=== PATIENT | male | born 1940 | race Caucasian/White ===

== ENCOUNTER 2020-09-30 10:30 | Emergency (ER) | payer MEDICARE, OTHER, SELFPAY ==
[2020-09-30] VITALS (13 sets, daily range): BP systolic 124–183; BP diastolic 68–96; PULSE 74–92; RESP 12–22; TEMP 36.6; O2SAT 96–99; BMI 26.5
--- NOTE | 2020-09-30 10:39 | DI.RAD.S_ITS ---
PROCEDURE: XR CHEST 1V INDICATIONS: chest pain TECHNIQUE: One view of the chest was acquired. COMPARISON: None. FINDINGS: Surgical changes and devices: None. Lungs and pleura: There is mild interstitial prominence. Prominence of the pulmonary vasculature. Linear densities at the right greater than left lung bases likely representing atelectasis. Mediastinum: Mediastinal contours appear normal. Heart size is enlarged. Vascular calcifications within the aortic arch. Bones and chest wall: Degenerative changes of the shoulders and spine without acute osseous abnormality or aggressive appearing osseous lesion. Multiple calcifications overlying the right humeral head and within the subcoracoid recess likely representing intra-articular loose bodies. Overlying soft tissues appear unremarkable. IMPRESSION: Findings suggestive of CHF with cardiomegaly, pulmonary vascular congestion and findings favoring interstitial edema. Atypical infectious process is not completely excluded. No focal consolidation. Dictated by: on 09/30/2020 at 9:53 Approved by: on 09/30/2020 at 9:55
--- NOTE | 2020-09-30 11:39 | ED_ITS ---
HPI - Chest Pain General Chief Complaint: Chest Pain Stated Complaint: chest pain Time Seen by Provider: 09/30/20 11:38 Source: patient and family Mode of arrival: Ambulatory Limitations: no limitations History of Present Illness HPI narrative: This is an 80-year-old male comes emergency department complaint of chest pain that developed about 730 this morning upon awakening. Patient states it was present and then resolved while he was taking the [place] from [facility] [place], [place] to the hospital. Patient states it feels dull. It was on the left side and below the areola. Patient states it did not radiate anywhere else. Is not currently present. He denies any exacerbating or alleviating factors. He has not had similar symptoms in the past. Denies any fevers, no chills. He has had a cough with productive sort of greenish tenacious sputum. Patient denies any chest congestion. He has noted his legs chronic swelling in her maybe a little bit worse. He denies any nausea, no vomiting. No diaphoresis. He has chronic urinary incontinence. He denies any new changes with bowel movements, no black or bloody stools. He is on anticoagulant they believe it is Xarelto for his atrial fibrillation. He states he had a cardiac arrest 27 years ago that was witnessed by his secondary to a medication reaction or she performed CPR at home. He denies any cardiac stents. He has a history of hypertension, dyslipid emia, Parkinson's and gout. He currently lives at [facility] but is visiting his daughter this weekend. She does not have his most recent updated medication list but does have a prior list which shows that he has been on Lasix. Related Data Previous Rx's Medication Instructions Recorded furosemide [Lasix] 40 mg PO DAILY #5 tab 09/30/20 Allergies Allergy/AdvReac Type Severity Reaction Status Date / Time flecainide Allergy Severe Unresponsiv Verified 09/30/20 11:01 e Review of Systems Review of Systems ROS Unobtainable: All systems reviewed & are unremarkable except as noted in HPI and below Patient History Social History Smoking Status: Never smoker Smoking Status: Never smoker alcohol intake frequency: other Substance Use Type: does not use Exam Narrative Exam Narrative: GENERAL: Alert and oriented x three, elderly male in mild distress HEENT: Head normocephalic, atraumatic, EOMI, pupils reactive, face symmetric, moist mucous membranes NECK: Supple, full range of motion CARDIOVASCULAR: Regular rate and rhythm without murmurs, rubs or gallops. No JVD. RESPIRATORY: Breath sounds equal bilaterally, no wheezes rales or rhonchi. No tachypnea accessory muscle use. ABDOMEN: Soft, nontender. Normoactive bowel sounds all 4 quadrants. No guarding or rebound, rigidity, no mass : No CVA tenderness EXTREMITIES: Normal range of motion, no clubbing. Bilateral lower extremity edema. Neurovascularly intact NEUROLOGICAL: Cranial nerves II through XII grossly intact. Moving all extremities SKIN: Warm, dry, no petechiae, no rashes. Patient has hyperpigmentation bilateral lower extremities consistent with venous stasis changes. Initial Vital Signs Initial Vital Signs: Vital Signs Pulse Rate 75 09/30/20 10:50 Respiratory Rate 18 09/30/20 10:50 Blood Pressure 133/77 09/30/20 10:50 Pulse Oximetry 98 09/30/20 10:50 Course Orders Ordered: ED Orders 09/30/20 10:39 XR chest 1V Stat EKG-12 Lead Stat 09/30/20 10:55 COVID19 - ADMIT ([employer] swab/PCR) Stat 09/30/20 10:56 Sputum Culture Stat 09/30/20 12:05 Complete Blood Count AUTO DIFF Stat Comprehensive Metabolic Panel Stat Lipase Stat NT-proBNP (BNP-Adult 18+) Stat Partial Thromboplastin Time Stat Prothrombin Time INR Stat Troponin & CK Cardiac Panel Stat 09/30/20 14:15 Troponin I Stat Discontinued Medications Furosemide (Furosemide 40 Mg/4 Ml Vial) 40 mg IV NOW ONE Stop: 09/30/20 13:25 Last Admin: 09/30/20 13:32 Dose: 40 mg Documented by: JEN Vital Signs Vital signs: Vital Signs - 8 hr 09/30/20 10:50 09/30/20 11:00 09/30/20 11:01 Temperature 97.8 F Pulse Rate 75 83 74 Respiratory Rate 18 13 22 Blood Pressure 133/77 125/68 125/68 Pulse Oximetry 98 98 97 09/30/20 11:30 09/30/20 12:00 09/30/20 12:30 Temperature Pulse Rate 80 83 87 Respiratory Rate 12 17 Blood Pressure 124/68 158/91 H Pulse Oximetry 96 99 09/30/20 12:31 09/30/20 13:00 09/30/20 13:06 Temperature Pulse Rate 82 80 82 Respiratory Rate 17 15 Blood Pressure 183/84 H 158/96 H Pulse Oximetry 98 09/30/20 13:30 09/30/20 14:00 09/30/20 14:30 Temperature Pulse Rate 92 H 84 79 Respiratory Rate 21 16 17 Blood Pressure 157/91 H 139/82 153/73 H Pulse Oximetry 09/30/20 15:00 Temperature Pulse Rate 82 Respiratory Rate 15 Blood Pressure 131/81 Pulse Oximetry MDM - Chest Pain Lab Data Attestation: I reviewed the patient's lab results. Result diagrams: 09/30/20 12:05 09/30/20 12:05 Labs: Lab Results 09/30/20 09/30/20 09/30/20 Range/Units 10:55 12:05 12:05 WBC 10.9 (4.5-11.0) X10^3/uL RBC 4.36 L (4.5-5.9) X10^6/uL Hgb 13.6 (13.5-17.5) g/dL Hct 41.2 (41-53) % MCV 94.4 (80-100) fL MCH 31.2 (26-34) PG MCHC 33.0 (30-36) % RDW 14.8 (11.6-14.8) % Plt Count 152 (150-400) X10^3/uL Neut % (Auto) 81.0 H (50-75) % Lymph % (Auto) 8.4 L (25-40) % [place] % (Auto) 8.2 (3-14) % Eos % (Auto) 1.7 L (2-4) % Baso % (Auto) 0.7 (0-2) % Neut # (Auto) 8800 H (2897-3901) /uL Lymph # (Auto) 900 L (9975-5572) /uL [place] # (Auto) 900 (0-900) /uL Eos # (Auto) 200 (0-450) /uL Baso # (Auto) 100 (0-100) /uL PT 15.8 H (10.1-12.7) SECONDS INR 1.4 H (0.9-1.3) APTT 43 H (26.4-36.2) SECONDS Sodium (137-145) mmol/L Potassium (3.4-5.1) mmol/L Chloride (98-107) mmol/L Carbon Dioxide (22-32) mmol/L BUN (9-20) mg/dL Creatinine (0.66-1.25) mg/dL Estimated GFR (>60) mL/min BUN/Creatinine Ratio (6-22) Glucose (80-110) mg/dL Calcium (8.4-10.2) mg/dL Total Bilirubin (0.2-1.3) mg/dL AST (17-59) IU/L ALT (<50) IU/L Alkaline Phosphatase (38-126) U/L Total Creatine Kinase (55-170) U/L CK-MB (CK-2) CK-MB (CK-2) Rel Index Troponin I (0.01-0.034) ng/mL NT-Pro-B Natriuret Pep (<450) pg/mL Total Protein (6.3-8.2) g/dL Albumin (3.5-5.0) g/dL Globulin (1.7-4.1) g/dL Albumin/Globulin Ratio (1.0-2.8) Lipase (23-300) U/L SARS-CoV-2 (PCR) Negative (Negative) 09/30/20 09/30/20 Range/Units 12:05 14:15 WBC (4.5-11.0) X10^3/uL RBC (4.5-5.9) X10^6/uL Hgb (13.5-17.5) g/dL Hct (41-53) % MCV (80-100) fL MCH (26-34) PG MCHC (30-36) % RDW (11.6-14.8) % Plt Count (150-400) X10^3/uL Neut % (Auto) (50-75) % Lymph % (Auto) (25-40) % [place] % (Auto) (3-14) % Eos % (Auto) (2-4) % Baso % (Auto) (0-2) % Neut # (Auto) (0814-2854) /uL Lymph # (Auto) (1704-1824) /uL [place] # (Auto) (0-900) /uL Eos # (Auto) (0-450) /uL Baso # (Auto) (0-100) /uL PT (10.1-12.7) SECONDS INR (0.9-1.3) APTT (26.4-36.2) SECONDS Sodium 140 (137-145) mmol/L Potassium 4.4 (3.4-5.1) mmol/L Chloride 106 (98-107) mmol/L Carbon Dioxide 26 (22-32) mmol/L BUN 21 H (9-20) mg/dL Creatinine 0.90 (0.66-1.25) mg/dL Estimated GFR > 60.0 (>60) mL/min BUN/Creatinine Ratio 23.3 H (6-22) Glucose 84 (80-110) mg/dL Calcium 9.4 (8.4-10.2) mg/dL Total Bilirubin 0.8 (0.2-1.3) mg/dL AST 20 (17-59) IU/L ALT 5 (<50) IU/L Alkaline Phosphatase 93 (38-126) U/L Total Creatine Kinase 39 L (55-170) U/L CK-MB (CK-2) TNP CK-MB (CK-2) Rel Index TNP Troponin I < 0.012 < 0.012 (0.01-0.034) ng/mL NT-Pro-B Natriuret Pep 1820 H (<450) pg/mL Total Protein 6.8 (6.3-8.2) g/dL Albumin 4.1 (3.5-5.0) g/dL Globulin 2.7 (1.7-4.1) g/dL Albumin/Globulin Ratio 1.5 (1.0-2.8) Lipase 116 (23-300) U/L SARS-CoV-2 (PCR) (Negative) Imaging Data Chest x-ray: Radiologist's Impression: Robyn Bernard 80 M [address] [id number] ReportSigned Patient: Robyn BernardMR#: [id number]: [id number]:[id number]/Sex: 80 / MDate of Service: 09/30/20Loc: EDAccession Number: [id number] Procedure: XR chest 1V Ordering Provider: Desi Kennedy D.O. PROCEDURE: XR CHEST 1V INDICATIONS: chest pain TECHNIQUE: One view of the chest was acquired. COMPARISON: None. FINDINGS: Surgical changes and devices: None. Lungs and pleura: There is mild interstitial prominence. Prominence of the pulmonary vasculature. Linear densities at the right greater than left lung bases likely representing atelectasis. Mediastinum: Mediastinal contours appear normal. Heart size is enlarged. Vascular calcifications within the aortic arch. Bones and chest wall: Degenerative changes of the shoulders and spine without acute osseous abnormality or aggressive appearing osseous lesion. Multiple calcificat ions overlying the right humeral head and within the subcoracoid recess likely representing intra-articular loose bodies. Overlying soft tissues appear unremarkable. IMPRESSION: Findings suggestive of CHF with cardiomegaly, pulmonary vascular congestion and findings favoring interstitial edema. Atypical infectious process is not completely excluded. No focal consolidation. Dictated by: on 09/30/2020 at 9:53 Approved by: on 09/30/2020 at 9:55 ECG Data Attestation: I personally reviewed and interpreted this ECG as follows: Prior ECG tracings: not available for review Interpretation: AFib, rate of 66, QRS of 116 and QTC of 402. Incomplete right bundle branch. No ischemic changes appreciated. EKG number shows AFib with nonspecific intraventricular conduction. Rate of 78 QRS of 124 and QTC of 453. Patient does not have any acute ST changes appreciated. [facility] Narrative Medical decision making narrative: This is an 80-year-old male who comes to the emergency department with chest pain which has since resolved. Patient's initial troponin is negative with no acute ischemic changes he is in AFib but rate controlled. His BNP is quite elevated he appears fluid overloaded on exam with a changes on chest x-ray consistent with pulmonary edema. Patient continues to be chest pain-free in the department. His repeat troponin is negative with no acute EKG changes. He has cardiac risk factors but I suspect his chest pain is related to CHF exacerbation. Patient feels comfortable returning home. We did discuss that there is still some level of risk. And that if he has any recurrent symptoms he does need to return. Discharge Plan Departure Patient Disposition: Home Clinical Impression: Chest pain, CHF (congestive heart failure) Instructions: DI for Heart Failure Activity Restrictions/Additional Instructions: Follow up with your physician this week. You have been given a prescription to increase your Lasix by 40 mg daily. Please correlate and adjust as needed the amount of Lasix your taking with her regular medications with the prescription given today as we do not have access to your daily medication list. Continue your other home medications as prescribed. Sputum culture was obtained and is pending. Discuss with your facility if they can provide a [place] or condom catheter overnight if you find this helpful. Please return for fevers greater 100.4 F, new or worsening chest pain, increasing shortness of breath, lightheadedness or passing out, increasing sw elling of her extremities, persistent vomiting, black or bloody stools recurrent or new concerning symptoms. Prescriptions: New furosemide [Lasix] 40 mg tablet 40 mg PO DAILY Qty: 5 RF: 0 Referrals: Annie Pendleton MD [Primary Care Provider] -
[2020-09-30 11:52] LABS: COVID19 - ADMIT (NP swab/PCR) Negative (Negative)
[2020-09-30 12:16] LABS: Add Manual Diff / Slide Review NO; Basophils Absolute Auto 100 /uL (0-100); Basophils Percent Auto 0.7 % (0-2); Eosinophils Absolute Auto 200 /uL (0-450); Eosinophils Percent Auto 1.7 % (2-4); Hematocrit 41.2 % (41-53); Hemoglobin 13.6 g/dL (13.5-17.5); Lymphocytes Absolute Auto 900 /uL (1100-4500); Lymphocytes Percent Auto 8.4 % (25-40); Mean Corpuscular Hemoglobin 31.2 PG (26-34); Mean Corpuscular Volume 94.4 fL (80-100); Monocytes Absolute Auto 900 /uL (0-900); Monocytes Percent Auto 8.2 % (3-14); Neutrophils Absolute Auto 8800 /uL (1500-7000); Platelet Count 152 X10^3/uL (150-400); Red Blood Cell Count 4.36 X10^6/uL (4.5-5.9); Red Cell Distribution Width 14.8 % (11.6-14.8); White Blood Cell Count 10.9 X10^3/uL (4.5-11.0)
[2020-09-30 12:21] LABS: INR 1.4 (0.9-1.3); Prothrombin Time 15.8 SECONDS (10.1-12.7)
[2020-09-30 12:24] LABS: PTT Partial Thromboplastin Tim 43 SECONDS (26.4-36.2)
[2020-09-30 12:25] LABS: Alanine Aminotransferase 5 IU/L (<50); Albumin 4.1 g/dL (3.5-5.0); Albumin Globulin Ratio 1.5 (1.0-2.8); Alkaline Phosphatase 93 U/L (38-126); Aspartate Aminotransferase 20 IU/L (17-59); BUN Creatinine Ratio 23.3 (6-22); Bilirubin Total 0.8 mg/dL (0.2-1.3); Blood Urea Nitrogen 21 mg/dL (9-20); Calcium 9.4 mg/dL (8.4-10.2); Carbon Dioxide 26 mmol/L (22-32); Chloride 106 mmol/L (98-107); Creatine Kinase 39 U/L (55-170); Estimated Glomerular Filt Rate > 60.0 mL/min (>60); Globulin 2.7 g/dL (1.7-4.1); Glucose 84 mg/dL (80-110); HEMOLYSIS 42 (0-50); Lipase 116 U/L (23-300); Potassium 4.4 mmol/L (3.4-5.1); Sodium 140 mmol/L (137-145); Total Protein 6.8 g/dL (6.3-8.2)
[2020-09-30 12:37] LABS: NT-proBNP (BNP-Adult 18+) 1820 pg/mL (<450); Troponin I < 0.012 ng/mL (0.01-0.034)
[2020-09-30] MEDS: FUROSEMIDE 40 MG/4 ML VIAL IV (13:32)
[2020-09-30 14:48] LABS: Troponin I < 0.012 ng/mL (0.01-0.034)
== END 2020-09-30 15:35 | disposition home or self-care (01) ==
PROVIDERS: Emergency Provider Emergency Medicine; Family Provider Internal Medicine; PCP Internal Medicine
DX: R07.9 Chest pain, unspecified (principal); I50.9 Heart failure, unspecified; Z20.822 Contact with and (suspected) exposure to COVID-19
CPT/HCPCS: 36415; 51701; 71045; 80053; 82550; 83690; 83880; 84484; 85025; 85610; 85730; 87070; 87205; 87635; 93005; 93010; 96374; 99284; C9803; J1940